=== PATIENT | female | born 1990 | race African-American/Black ===

== ENCOUNTER 2017-08-05 12:53 | Outpatient (CLI) | payer OTHER ==
[2017-08-05] MEDS: LACTATED RINGER'S 1,000 ML IV (15:14)
[2017-08-05] MEDS: CEFAZOLIN 2 GM/50 ML (PMX) 50 ML IV (15:30)
== END 2017-08-05 18:00 | disposition home or self-care (01) ==
LOC: OBT 12:53 → L-D 12:55 → OBT 18:00
DX: O62.9 Abnormality of forces of labor, unspecified (principal); Z3A.36 36 weeks gestation of pregnancy
CPT/HCPCS: 36415; 76818; 96360; 96361

== ENCOUNTER 2017-08-27 16:09 | Inpatient (IN) | payer OTHER ==
[2017-08-27] MEDS ORDERED: CARBOPROST 250 MCG INJ IM (17:30)
[2017-08-27] MEDS ORDERED: OXYTOCIN 30 UNITS/LR 500 ML IV ×2 (17:30)
[2017-08-27] MEDS ORDERED: METHYLERGONOVINE 0.2 MG INJ IM (17:30)
[2017-08-27] MEDS ORDERED: LIDOCAINE 1% (MPF) 30 ML INJ INJ (17:30)
[2017-08-27] MEDS ORDERED: MISOPROSTOL 200 MCG TAB PR (17:30)
[2017-08-27] MEDS: LACTATED RINGER'S 1,000 ML IV ×2 (17:39→23:08)
[2017-08-27 17:48] LABS: ADD UMIC YES; UR ASCORBIC ACID NEGATIVE (NEGATIVE); UR BACTERIA MODERATE /HPF (NONE SEEN); UR BILIRUBIN (Dip) NEGATIVE (NEGATIVE); UR BLOOD (Dip) NEGATIVE (NEGATIVE); UR CLARITY SLIGHTLY CLOUDY (CLEAR); UR COLOR YELLOW (YELLOW); UR GLUCOSE (Dip) NEGATIVE (NEGATIVE); UR KETONES (Dip) NEGATIVE (NEGATIVE); UR LEUKOCYTE ESTERASE (Dip) 2+ Leu/ul (NEGATIVE); UR NITRITE (Dip) NEGATIVE (NEGATIVE); UR RBC 1 /HPF (0-5); UR SPECIFIC GRAVITY (Dip) 1.012 (1.003-1.030); UR SQUAMOUS EPITHELIAL CELL MODERATE /HPF (FEW); UR TOTAL PROTEIN (Dip) NEGATIVE (NEGATIVE); UR UROBILINOGEN (Dip) NEGATIVE (NEGATIVE); UR WBC 4 /HPF (0-5)
[2017-08-27 18:05] LABS: ADD MAN DIFF? NO
[2017-08-27 18:10] LABS: WHITE BLOOD COUNT 9.4 10^3/ul (4.8-10.8)
[2017-08-27 18:11] LABS: BASOPHILS % 0.2 % (0.0-2.0); EOSINOPHILS # 0.1 10^3/ul (0.0-0.5); EOSINOPHILS % 0.7 % (0.0-7.0); HEMATOCRIT 32.7 % (37.0-47.0); HEMOGLOBIN 10.4 g/dl (12.0-16.0); LYMPHOCYTES # 1.8 10^3/ul (0.8-2.9); LYMPHOCYTES % 19.2 % (15.0-51.0); MEAN CORPUSCULAR HEMOGLOBIN 29.4 pg (29.0-33.0); MEAN CORPUSCULAR HGB CONC 31.8 g/dl (32.0-37.0); MEAN CORPUSCULAR VOLUME 92.4 fl (82.0-101.0); MEAN PLATELET VOLUME 11.5 fl (7.4-10.4); MONOCYTE # 0.8 10^3/ul (0.3-0.9); MONOCYTES % 8.3 % (0.0-11.0); NEUTROPHIL # 6.6 10^3/ul (1.6-7.5); NEUTROPHILS % 70.9 % (39.0-77.0); PLATELET COUNT 194 10^3/UL (140-415); RED BLOOD COUNT 3.54 10^6/ul (4.20-5.40); RED CELL DISTRIBUTION WIDTH 14.3 % (11.5-14.5)
[2017-08-27 18:25] LABS: URIC ACID 4.9 mg/dl (3.1-7.9)
[2017-08-27 18:35] LABS: INR 0.91; PROTIME 12.3 Sec (11.9-14.9)
[2017-08-27 18:36] LABS: PARTIAL THROMBOPLASTIN TIME 25.5 Sec (25.0-35.0)
[2017-08-27 18:57] LABS: HEPATITIS B SURFACE ANTIGEN NEGATIVE (NEGATIVE)
[2017-08-27 19:24] LABS: ALANINE AMINOTRANSFERASE 11 IU/L (13-69); ALBUMIN 3.5 g/dl (3.3-4.9); ALBUMIN/GLOBULIN RATIO 1.09; ALKALINE PHOSPHATASE 208 IU/L (42-121); ANION GAP 12 (8-16); ASPARTATE AMINO TRANSFERASE 21 IU/L (15-46); BILIRUBIN,INDIRECT 0.3 mg/dl (0-1.1); BILIRUBIN,TOTAL 0.3 mg/dl (0.2-1.3); BLOOD UREA NITROGEN 5 mg/dl (7-20); CALCIUM 9.2 mg/dl (8.4-10.2); CARBON DIOXIDE 24 mmol/L (21-31); CHLORIDE 107 mmol/L (97-110); CREATININE 0.49 mg/dl (0.44-1.00); GLUCOSE 68 mg/dl (70-220); SODIUM 139 mmol/L (135-144); TOTAL PROTEIN 6.7 g/dl (6.1-8.1)
[2017-08-27] MEDS: BUTORPHANOL 2 MG INJ IV (20:49)
[2017-08-27] MEDS ORDERED: IBUPROFEN 600 MG TAB PO (21:00)
[2017-08-27 21:57] LABS: HIV 1&2 ANTIBODY NEGATIVE (NEGATIVE)
[2017-08-27] MEDS ORDERED: CA GLUCONATE (GM) 10% 10ML INJ IV (23:30)
[2017-08-28] MEDS ORDERED: FENTAnyl 2MCG/ML-ROPIV 0.2% 100 ML (00:29)
[2017-08-28] MEDS ORDERED: NALOXONE (0.4 MG/ML) INJ IV (00:30)
[2017-08-28] MEDS ORDERED: DIPHENHYDRAMINE 50 MG INJ IV (00:30)
[2017-08-28] MEDS ORDERED: ONDANSETRON 4 MG INJ IV ×2 (00:30→10:30)
[2017-08-28] MEDS: FENTAnyl 2MCG/ML-ROPIV 0.2% 100 ML BAG EPI ×2 (00:58→09:22)
[2017-08-28] MEDS: MAGNESIUM SULFATE 4 GM/100 ML 100 ML IV (01:20)
[2017-08-28] MEDS: DINOPROSTONE 10 MG VAG SUPP VAG (01:50)
[2017-08-28] MEDS: MAGNESIUM SULFATE 20 GM/500 ML 500 ML IV ×2 (02:04→11:11)
[2017-08-28] MEDS: LACTATED RINGER'S 1,000 ML IV ×2 (02:11→09:06)
[2017-08-28] MEDS: OXYTOCIN 30 UNITS/LR 500 ML IV ×6 (06:46→16:26)
[2017-08-28 07:57] LABS: ADD MAN DIFF? NO
[2017-08-28 08:03] LABS: BASOPHILS % 0.1 % (0.0-2.0); EOSINOPHILS % 0.1 % (0.0-7.0); HEMATOCRIT 32.4 % (37.0-47.0); HEMOGLOBIN 10.3 g/dl (12.0-16.0); LYMPHOCYTES # 1.2 10^3/ul (0.8-2.9); LYMPHOCYTES % 14.2 % (15.0-51.0); MEAN CORPUSCULAR HEMOGLOBIN 29.9 pg (29.0-33.0); MEAN CORPUSCULAR HGB CONC 31.8 g/dl (32.0-37.0); MEAN CORPUSCULAR VOLUME 94.2 fl (82.0-101.0); MEAN PLATELET VOLUME 11.4 fl (7.4-10.4); MONOCYTE # 0.5 10^3/ul (0.3-0.9); MONOCYTES % 6.4 % (0.0-11.0); NEUTROPHIL # 6.4 10^3/ul (1.6-7.5); NEUTROPHILS % 78.7 % (39.0-77.0); PLATELET COUNT 181 10^3/UL (140-415); RED BLOOD COUNT 3.44 10^6/ul (4.20-5.40); RED CELL DISTRIBUTION WIDTH 14.6 % (11.5-14.5)
[2017-08-28 08:03] LABS: WHITE BLOOD COUNT 8.1 10^3/ul (4.8-10.8)
[2017-08-28 08:25] LABS: INR 1.03; PROTIME 13.6 Sec (11.9-14.9); PT RATIO 1.1
[2017-08-28 08:26] LABS: PARTIAL THROMBOPLASTIN TIME 26.1 Sec (25.0-35.0)
[2017-08-28 08:28] LABS: ALANINE AMINOTRANSFERASE 18 IU/L (13-69); ALBUMIN 3.2 g/dl (3.3-4.9); ALBUMIN/GLOBULIN RATIO 1.03; ALKALINE PHOSPHATASE 212 IU/L (42-121); ANION GAP 9 (8-16); ASPARTATE AMINO TRANSFERASE 21 IU/L (15-46); BILIRUBIN,INDIRECT 0.3 mg/dl (0-1.1); BILIRUBIN,TOTAL 0.3 mg/dl (0.2-1.3); BLOOD UREA NITROGEN 5 mg/dl (7-20); CALCIUM 8.4 mg/dl (8.4-10.2); CARBON DIOXIDE 27 mmol/L (21-31); CHLORIDE 107 mmol/L (97-110); CREATININE 0.59 mg/dl (0.44-1.00); GLUCOSE 74 mg/dl (70-220); POTASSIUM 4.1 mmol/L (3.5-5.1); SODIUM 139 mmol/L (135-144); TOTAL PROTEIN 6.3 g/dl (6.1-8.1); URIC ACID 5.5 mg/dl (3.1-7.9)
[2017-08-28 08:40] LABS: MAGNESIUM 5.2 mg/dl (1.7-2.5)
[2017-08-28] MEDS ORDERED: DIPHENHYDRAMINE 25 MG CAP PO (10:30)
[2017-08-28] MEDS ORDERED: DIBUCAINE 1% 30 GM OINT TOP (10:30)
[2017-08-28] MEDS ORDERED: METHYLERGONOVINE 0.2 MG INJ IM (10:30)
[2017-08-28] MEDS ORDERED: MISOPROSTOL 200 MCG TAB PR (10:30)
[2017-08-28] MEDS ORDERED: CARBOPROST 250 MCG INJ IM (10:30)
[2017-08-28] MEDS ORDERED: HYDROCODONE/APAP (5/325) TAB PO ×2 (10:30)
[2017-08-28] MEDS ORDERED: OXYTOCIN 30 UNITS/LR 500 ML IV (10:30)
[2017-08-28] MEDS ORDERED: LACTATED RINGER'S 1,000 ML IV (10:48)
[2017-08-28] MEDS ORDERED: CA GLUCONATE (GM) 10% 10ML INJ IV (11:00)
[2017-08-28 13:18] LABS: PROTIME 13.3 Sec (11.9-14.9)
[2017-08-28] MEDS: IBUPROFEN 800 MG TAB PO ×3 (13:18→23:54)
[2017-08-28 13:19] LABS: PARTIAL THROMBOPLASTIN TIME 26.3 Sec (25.0-35.0)
[2017-08-28 13:28] LABS: URIC ACID 5.7 mg/dl (3.1-7.9)
[2017-08-28] MEDS: LANOLIN 7 GM TUBE TOP ×2 (13:32→20:42)
[2017-08-28 13:54] LABS: MAGNESIUM 4.6 mg/dl (1.7-2.5)
[2017-08-28 16:42] LABS: RAPID PLASMA REAGIN NONREACTIVE (NR)
[2017-08-28 19:18] LABS: MAGNESIUM 3.7 mg/dl (1.7-2.5)
[2017-08-28] MEDS: BENZOCAINE 20% 56 ML SPRAY TOP (19:52)
[2017-08-28] MEDS: ACETAMINOPHEN 325 MG TAB PO (19:52)
[2017-08-28] MEDS: SENNA/DOCUSATE NA (8.6MG/50MG) TAB PO (20:42)
[2017-08-29] MEDS: LACTATED RINGER'S 1,000 ML IV ×3 (00:30→16:30)
[2017-08-29 02:00] LABS: MAGNESIUM 3.4 mg/dl (1.7-2.5)
[2017-08-29] MEDS: IBUPROFEN 800 MG TAB PO ×4 (05:36→23:40)
[2017-08-29] MEDS: MAGNESIUM SULFATE 20 GM/500 ML 500 ML IV (06:26)
[2017-08-29 07:30] LABS: ADD MAN DIFF? NO
[2017-08-29 07:32] LABS: BASOPHILS % 0.1 % (0.0-2.0); EOSINOPHILS # 0.2 10^3/ul (0.0-0.5); EOSINOPHILS % 1.9 % (0.0-7.0); HEMATOCRIT 30.3 % (37.0-47.0); HEMOGLOBIN 9.8 g/dl (12.0-16.0); LYMPHOCYTES # 1.9 10^3/ul (0.8-2.9); MEAN CORPUSCULAR HEMOGLOBIN 30.2 pg (29.0-33.0); MEAN CORPUSCULAR HGB CONC 32.3 g/dl (32.0-37.0); MEAN CORPUSCULAR VOLUME 93.5 fl (82.0-101.0); MEAN PLATELET VOLUME 11.1 fl (7.4-10.4); MONOCYTE # 0.8 10^3/ul (0.3-0.9); MONOCYTES % 8.4 % (0.0-11.0); NEUTROPHIL # 6.9 10^3/ul (1.6-7.5); NEUTROPHILS % 70.2 % (39.0-77.0); PLATELET COUNT 172 10^3/UL (140-415); RED BLOOD COUNT 3.24 10^6/ul (4.20-5.40); RED CELL DISTRIBUTION WIDTH 14.2 % (11.5-14.5)
[2017-08-29 07:32] LABS: WHITE BLOOD COUNT 9.9 10^3/ul (4.8-10.8)
[2017-08-29 08:00] LABS: MAGNESIUM 3.3 mg/dl (1.7-2.5)
[2017-08-29] MEDS: SENNA/DOCUSATE NA (8.6MG/50MG) TAB PO ×2 (08:04→21:11)
[2017-08-29] MEDS: ACETAMINOPHEN 325 MG TAB PO ×3 (08:04→23:40)
[2017-08-29 08:57] LABS: ALANINE AMINOTRANSFERASE 14 IU/L (13-69); ALBUMIN 2.7 g/dl (3.3-4.9); ALKALINE PHOSPHATASE 160 IU/L (42-121); ANION GAP 10 (8-16); ASPARTATE AMINO TRANSFERASE 23 IU/L (15-46); BILIRUBIN,INDIRECT 0.2 mg/dl (0-1.1); BILIRUBIN,TOTAL 0.2 mg/dl (0.2-1.3); BLOOD UREA NITROGEN 5 mg/dl (7-20); CALCIUM 8.4 mg/dl (8.4-10.2); CARBON DIOXIDE 25 mmol/L (21-31); CHLORIDE 111 mmol/L (97-110); CREATININE 0.65 mg/dl (0.44-1.00); GLUCOSE 90 mg/dl (70-220); POTASSIUM 4.2 mmol/L (3.5-5.1); SODIUM 142 mmol/L (135-144); TOTAL PROTEIN 5.7 g/dl (6.1-8.1)
[2017-08-29] MEDS: LABETALOL 100 MG TAB PO ×3 (16:24→22:22)
[2017-08-29] MEDS: PHENYTOIN 100 MG CAP PO ×2 (16:25→22:21)
[2017-08-30] MEDS: LACTATED RINGER'S 1,000 ML IV ×2 (00:30→07:31)
[2017-08-30] MEDS: PHENYTOIN 100 MG CAP PO ×2 (06:08→13:32)
[2017-08-30] MEDS: ACETAMINOPHEN 325 MG TAB PO ×2 (06:08→13:32)
[2017-08-30] MEDS: IBUPROFEN 800 MG TAB PO ×2 (06:08→11:25)
[2017-08-30] MEDS: MEASLES,MUMPS,RUBELLA VACCINE INJ SC* (07:31)
[2017-08-30] MEDS: DIPHTH/TET/ACEL PERTUSS (ADULT) 0.5 ML VIAL IM* (07:31)
[2017-08-30] MEDS: VARICELLA VACCINE LIVE/PF 1,350 UNIT/0.5 ML ML SC* (07:32)
[2017-08-30] MEDS: SENNA/DOCUSATE NA (8.6MG/50MG) TAB PO (09:03)
[2017-08-30] MEDS: LABETALOL 100 MG TAB PO (09:04)
== END 2017-08-30 14:00 | disposition home or self-care (01) | DRG 775 ==
LOC: OBT 16:09 → PP1 08-28 12:55 → L-D 16:10 → OBT 16:43 → L-D 16:53
PROVIDERS: Obstetrics & Gynecology
PROC: 10E0XZZ Delivery of Products of Conception, External Approach (ICD-10-PCS; principal; 2017-08-28)
PROC: 3E033VJ Introduction of Other Hormone into Peripheral Vein, Percutaneous Approach (ICD-10-PCS; 2017-08-28)
DX: O69.81X0 Labor and delivery complicated by cord around neck, without compression, not applicable or unspecified (principal); O13.4 Gestational [pregnancy-induced] hypertension without significant proteinuria, complicating childbirth; O14.04 Mild to moderate pre-eclampsia, complicating childbirth; Z3A.38 38 weeks gestation of pregnancy; Z37.0 Single live birth
CPT/HCPCS: 62319; 80053; 81001; 83735; 84560; 85025; 85384; 85610; 85730; 86592; 86703; 86850; 86900; 86901; 87340